=== PATIENT | male | born 1955 | race Caucasian/White ===

== ENCOUNTER 2018-01-07 16:00 | Emergency (ER) | payer OTHER | END 2018-01-07 19:06 | disposition home or self-care (01) | LOC: FTE 16:00 | DX: T25.221A Burn of second degree of right foot, initial encounter (principal); E11.621 Type 2 diabetes mellitus with foot ulcer; L97.519 Non-pressure chronic ulcer of other part of right foot with unspecified severity; X16.XXXA Contact with hot heating appliances, radiators and pipes, initial encounter; Y92.9 Unspecified place or not applicable | CPT/HCPCS: 99282 ==

== ENCOUNTER 2018-01-10 15:33 | Inpatient (IN) | payer OTHER ==
[2018-01-10 17:03] LABS: ADD MAN DIFF? NO
[2018-01-10 17:08] LABS: BASOPHILS % 0.4 % (0.0-2.0); EOSINOPHILS # 0.1 10^3/ul (0.0-0.5); EOSINOPHILS % 2.6 % (0.0-7.0); HEMATOCRIT 33.3 % (42.0-52.0); HEMOGLOBIN 11.3 g/dl (14.0-18.0); LYMPHOCYTES # 1.2 10^3/ul (0.8-2.9); MEAN CORPUSCULAR HEMOGLOBIN 27.7 pg (29.0-33.0); MEAN CORPUSCULAR HGB CONC 33.9 g/dl (32.0-37.0); MEAN CORPUSCULAR VOLUME 81.6 fl (82.0-101.0); MEAN PLATELET VOLUME 8.6 fl (7.4-10.4); MONOCYTE # 0.4 10^3/ul (0.3-0.9); MONOCYTES % 7.3 % (0.0-11.0); NEUTROPHIL # 3.3 10^3/ul (1.6-7.5); NEUTROPHILS % 66.1 % (39.0-77.0); PLATELET COUNT 252 10^3/UL (140-415); RED BLOOD COUNT 4.08 10^6/ul (4.70-6.10); RED CELL DISTRIBUTION WIDTH 14.4 % (11.5-14.5)
[2018-01-10] MEDS: SODIUM CHLORIDE 0.9% 1L BAG IV* (17:13)
[2018-01-10] MEDS: CEFEPIME 2GM/50 ML (PMX) 50 ML IVPB (17:13)
[2018-01-10 17:20] LABS: MODE ROOM AIR; MetHgb Venous 0.3 %; Sample Type Blood venous; Site VENOUS LINE; Venous COHb 0.4 %; Venous Fraction OxyHgb 54.4 %; Venous Oxygen Sat 54.8 mmHG (55.0-75.0); Venous Total Hemglobin 11.3 g/dl
[2018-01-10 17:31] LABS: ANION GAP 9 (5-13); BLOOD UREA NITROGEN 17 mg/dl (7-20); C-REACTIVE PROTEIN 0.7 mg/dl (0.0-0.9); CALCIUM 9.3 mg/dl (8.4-10.2); CARBON DIOXIDE 32 mmol/L (21-31); CHLORIDE 95 mmol/L (97-110); CREATININE 0.84 mg/dl (0.61-1.24); PARTIAL THROMBOPLASTIN TIME 31.2 Sec (23.0-35.0); POTASSIUM 4.1 mmol/L (3.5-5.1); SODIUM 136 mmol/L (135-144)
[2018-01-10 17:41] LABS: INR 0.93; PROTIME 12.5 Sec (11.9-14.9)
[2018-01-10 17:46] LABS: GLUCOSE 491 mg/dl (70-220)
[2018-01-10] MEDS: VANCOMYCIN 1 GM (PMX) 250 ML IVPB (17:48)
[2018-01-10] MEDS: INSULIN LISPRO 100 UNIT/ML VIAL SC (18:12)
[2018-01-10 18:25] LABS: ERYTHROCYTE SEDIMENTATION RATE 24 mm/Hr (0-20)
[2018-01-10] MEDS ORDERED: MAGNESIUM HYDROXIDE 30ML CUP PO (18:30)
[2018-01-10] MEDS ORDERED: ONDANSETRON 4 MG INJ IV ×2 (18:30)
[2018-01-10] MEDS ORDERED: GLUCOSE GEL 15 GRAM TUBE PO ×2 (18:30)
[2018-01-10] MEDS ORDERED: VANCOMYCIN IV PER PHARMACY XX (18:30)
[2018-01-10] MEDS ORDERED: NACL 0.9% 3 ML SYG IV (18:30)
[2018-01-10] MEDS ORDERED: GLUCOSE GEL 15 GRAM TUBE BUCCAL (18:30)
[2018-01-10] MEDS ORDERED: GLUCAGON 1 MG INJ IM (18:30)
[2018-01-10] MEDS ORDERED: DEXTROSE 50% 50 ML SYRINGE IV ×2 (18:30)
[2018-01-10] MEDS ORDERED: HYDROCODONE/APAP (5/325) TAB PO (18:30)
[2018-01-10] MEDS ORDERED: ACETAMINOPHEN 325 MG TAB PO (18:30)
[2018-01-10] MEDS ORDERED: DOCUSATE SODIUM 100 MG CAP PO (18:30)
[2018-01-10 19:04] LABS: ADD UMIC NO; UR ASCORBIC ACID NEGATIVE (NEGATIVE); UR BILIRUBIN (Dip) NEGATIVE (NEGATIVE); UR BLOOD (Dip) NEGATIVE (NEGATIVE); UR CLARITY CLEAR (CLEAR); UR COLOR STRAW (YELLOW); UR GLUCOSE (Dip) 3+ mg/dL (NEGATIVE); UR KETONES (Dip) NEGATIVE (NEGATIVE); UR LEUKOCYTE ESTERASE (Dip) NEGATIVE Leu/ul (NEGATIVE); UR NITRITE (Dip) NEGATIVE (NEGATIVE); UR SPECIFIC GRAVITY (Dip) 1.028 (1.003-1.030); UR TOTAL PROTEIN (Dip) NEGATIVE (NEGATIVE); UR UROBILINOGEN (Dip) NEGATIVE (NEGATIVE)
[2018-01-10 19:18] LABS: HEMOGLOBIN A1C 10.5 % (0-5.9)
[2018-01-10 19:32] LABS: TOTAL IRON BINDING CAPACITY 255 ug/dl (241-421)
[2018-01-10 19:54] LABS: % IRON SATURATION 18 % SAT (22-52); IRON 45 ug/dl (35-150)
[2018-01-10] MEDS: INSULIN ASPART [NOVOLOG] 3 ML PEN SC (20:46)
[2018-01-10] MEDS: INSULIN GLARGINE [LANTus] (100 UNITS/ML) SYG SC (20:47)
[2018-01-10] MEDS: VANCOMYCIN 1 GM 250 ML IVPB (20:48)
[2018-01-10] MEDS: MEROPENEM 1 GM/50ML(PMX) 50 ML IVPB (22:18)
[2018-01-10] MEDS ORDERED: PENDING SANTYL ORDER FOR WOUND CARE XX (22:30)
[2018-01-11] MEDS ORDERED: COLLAGENASE 5 GM (UD JAR) TOP
[2018-01-11] MEDS: MEROPENEM 1 GM/50ML(PMX) 50 ML IVPB ×2 (05:35→13:49)
[2018-01-11 06:47] LABS: ADD MAN DIFF? NO
[2018-01-11 06:56] LABS: WHITE BLOOD COUNT 5.5 10^3/ul (4.8-10.8)
[2018-01-11 06:56] LABS: BASOPHILS % 0.4 % (0.0-2.0); EOSINOPHILS # 0.2 10^3/ul (0.0-0.5); EOSINOPHILS % 4.4 % (0.0-7.0); HEMATOCRIT 29.5 % (42.0-52.0); LYMPHOCYTES # 1.2 10^3/ul (0.8-2.9); LYMPHOCYTES % 21.8 % (15.0-51.0); MEAN CORPUSCULAR HEMOGLOBIN 27.9 pg (29.0-33.0); MEAN CORPUSCULAR HGB CONC 33.9 g/dl (32.0-37.0); MEAN CORPUSCULAR VOLUME 82.4 fl (82.0-101.0); MEAN PLATELET VOLUME 9.2 fl (7.4-10.4); MONOCYTE # 0.4 10^3/ul (0.3-0.9); MONOCYTES % 7.5 % (0.0-11.0); NEUTROPHIL # 3.6 10^3/ul (1.6-7.5); NEUTROPHILS % 65.4 % (39.0-77.0); PLATELET COUNT 212 10^3/UL (140-415); RED BLOOD COUNT 3.58 10^6/ul (4.70-6.10); RED CELL DISTRIBUTION WIDTH 14.5 % (11.5-14.5)
[2018-01-11 07:32] LABS: ANION GAP 5 (5-13); BLOOD UREA NITROGEN 11 mg/dl (7-20); CALCIUM 8.8 mg/dl (8.4-10.2); CARBON DIOXIDE 29 mmol/L (21-31); CHLORIDE 105 mmol/L (97-110); CREATININE 0.58 mg/dl (0.61-1.24); GLUCOSE 186 mg/dl (70-220); MAGNESIUM 1.8 mg/dl (1.7-2.5); POTASSIUM 3.9 mmol/L (3.5-5.1); SODIUM 139 mmol/L (135-144)
[2018-01-11] MEDS ORDERED: INSULIN GLARGINE [LANTus] (100 UNITS/ML) SYG SC (08:00)
[2018-01-11] MEDS: INSULIN ASPART [NOVOLOG] 3 ML PEN SC ×7 (08:06→20:48)
[2018-01-11] MEDS: VANCOMYCIN 1 GM 250 ML IVPB (08:19)
[2018-01-11] MEDS: COLLAGENASE 5 GM (UD JAR) TOP (08:19)
[2018-01-11] MEDS: ZYVOX 600 MG TAB PO ×2 (14:24→22:29)
[2018-01-11] MEDS: LEVOFLOXACIN 750 MG TABLET PO (14:24)
[2018-01-11] MEDS: HYDROCODONE/APAP (5/325) TAB PO (20:43)
[2018-01-11] MEDS: L ACIDOPHIL/B LACTIS/B LONGUM CAPSULE PO (20:43)
[2018-01-11] MEDS: INSULIN GLARGINE [LANTus] (100 UNITS/ML) SYG SC (20:47)
[2018-01-12 05:30] LABS: ADD MAN DIFF? NO
[2018-01-12 05:31] LABS: BASOPHILS % 0.8 % (0.0-2.0); EOSINOPHILS # 0.2 10^3/ul (0.0-0.5); EOSINOPHILS % 4.1 % (0.0-7.0); HEMATOCRIT 29.2 % (42.0-52.0); LYMPHOCYTES # 1.2 10^3/ul (0.8-2.9); LYMPHOCYTES % 31.4 % (15.0-51.0); MEAN CORPUSCULAR HEMOGLOBIN 28.2 pg (29.0-33.0); MEAN CORPUSCULAR HGB CONC 34.2 g/dl (32.0-37.0); MEAN CORPUSCULAR VOLUME 82.3 fl (82.0-101.0); MEAN PLATELET VOLUME 9.2 fl (7.4-10.4); MONOCYTE # 0.3 10^3/ul (0.3-0.9); MONOCYTES % 8.1 % (0.0-11.0); NEUTROPHIL # 2.2 10^3/ul (1.6-7.5); NEUTROPHILS % 55.1 % (39.0-77.0); PLATELET COUNT 204 10^3/UL (140-415); RED BLOOD COUNT 3.55 10^6/ul (4.70-6.10); RED CELL DISTRIBUTION WIDTH 14.6 % (11.5-14.5)
[2018-01-12] MEDS: LEVOFLOXACIN 750 MG TABLET PO (05:45)
[2018-01-12 06:01] LABS: ANION GAP 4 (5-13); BLOOD UREA NITROGEN 13 mg/dl (7-20); CALCIUM 9.1 mg/dl (8.4-10.2); CARBON DIOXIDE 32 mmol/L (21-31); CHLORIDE 102 mmol/L (97-110); GLUCOSE 221 mg/dl (70-220); MAGNESIUM 1.9 mg/dl (1.7-2.5); PHOSPHORUS 3.3 mg/dl (2.5-4.9); POTASSIUM 5.1 mmol/L (3.5-5.1); SODIUM 138 mmol/L (135-144)
[2018-01-12] MEDS: INSULIN ASPART [NOVOLOG] 3 ML PEN SC ×7 (08:09→20:33)
[2018-01-12] MEDS: L ACIDOPHIL/B LACTIS/B LONGUM CAPSULE PO ×2 (08:14→20:33)
[2018-01-12] MEDS: ZYVOX 600 MG TAB PO (08:14)
[2018-01-12] MEDS: COLLAGENASE 5 GM (UD JAR) TOP (08:14)
[2018-01-12] MEDS: MULTIVITAMINS THERAPEUTIC TAB PO (12:23)
[2018-01-12] MEDS: ASCORBIC ACID 500 MG TAB PO (12:23)
[2018-01-12] MEDS: ZINC SULFATE 220 MG CAP PO (12:23)
[2018-01-12] MEDS: DAPTOMYCIN 460 MG in SOD CHLORIDE 0.9% 100 ML IVPB (15:28)
[2018-01-12] MEDS: INSULIN GLARGINE [LANTus] (100 UNITS/ML) SYG SC (20:32)
[2018-01-12] MEDS: HYDROCODONE/APAP (5/325) TAB PO (20:33)
[2018-01-13 05:14] LABS: ADD MAN DIFF? NO
[2018-01-13 05:22] LABS: BASOPHILS % 0.6 % (0.0-2.0); EOSINOPHILS # 0.2 10^3/ul (0.0-0.5); EOSINOPHILS % 4.4 % (0.0-7.0); HEMATOCRIT 31.6 % (42.0-52.0); HEMOGLOBIN 10.6 g/dl (14.0-18.0); LYMPHOCYTES # 1.7 10^3/ul (0.8-2.9); LYMPHOCYTES % 33.1 % (15.0-51.0); MEAN CORPUSCULAR HEMOGLOBIN 27.8 pg (29.0-33.0); MEAN CORPUSCULAR HGB CONC 33.5 g/dl (32.0-37.0); MEAN CORPUSCULAR VOLUME 82.9 fl (82.0-101.0); MEAN PLATELET VOLUME 8.9 fl (7.4-10.4); MONOCYTE # 0.4 10^3/ul (0.3-0.9); MONOCYTES % 8.8 % (0.0-11.0); NEUTROPHIL # 2.6 10^3/ul (1.6-7.5); NEUTROPHILS % 52.5 % (39.0-77.0); PLATELET COUNT 211 10^3/UL (140-415); RED BLOOD COUNT 3.81 10^6/ul (4.70-6.10); RED CELL DISTRIBUTION WIDTH 14.6 % (11.5-14.5)
[2018-01-13 05:45] LABS: ALBUMIN 2.5 g/dl (3.3-4.9); ANION GAP 5 (5-13); BLOOD UREA NITROGEN 15 mg/dl (7-20); CALCIUM 9.5 mg/dl (8.4-10.2); CARBON DIOXIDE 32 mmol/L (21-31); CHLORIDE 101 mmol/L (97-110); CREATININE 0.98 mg/dl (0.61-1.24); GLUCOSE 141 mg/dl (70-220); MAGNESIUM 1.9 mg/dl (1.7-2.5); PHOSPHORUS 4.1 mg/dl (2.5-4.9); POTASSIUM 4.3 mmol/L (3.5-5.1); SODIUM 138 mmol/L (135-144)
[2018-01-13] MEDS: LEVOFLOXACIN 750 MG TABLET PO (05:53)
[2018-01-13 06:02] LABS: CREATINE KINASE 61 IU/L (23-200)
[2018-01-13] MEDS: INSULIN ASPART [NOVOLOG] 3 ML PEN SC ×7 (08:01→20:20)
[2018-01-13] MEDS: COLLAGENASE 5 GM (UD JAR) TOP (08:02)
[2018-01-13] MEDS: ASCORBIC ACID 500 MG TAB PO (08:03)
[2018-01-13] MEDS: L ACIDOPHIL/B LACTIS/B LONGUM CAPSULE PO ×2 (08:03→20:26)
[2018-01-13] MEDS: MULTIVITAMINS THERAPEUTIC TAB PO (08:03)
[2018-01-13] MEDS: ZINC SULFATE 220 MG CAP PO (08:03)
[2018-01-13] MEDS: DAPTOMYCIN 460 MG in SOD CHLORIDE 0.9% 100 ML IVPB (15:33)
[2018-01-13] MEDS: HYDROCODONE/APAP (5/325) TAB PO (20:25)
[2018-01-13] MEDS: INSULIN GLARGINE [LANTus] (100 UNITS/ML) SYG SC (20:25)
[2018-01-14 04:58] LABS: ADD MAN DIFF? NO
[2018-01-14 05:04] LABS: WHITE BLOOD COUNT 3.8 10^3/ul (4.8-10.8)
[2018-01-14 05:04] LABS: BASOPHILS % 0.5 % (0.0-2.0); EOSINOPHILS # 0.2 10^3/ul (0.0-0.5); EOSINOPHILS % 4.3 % (0.0-7.0); HEMATOCRIT 31.8 % (42.0-52.0); HEMOGLOBIN 10.5 g/dl (14.0-18.0); LYMPHOCYTES # 1.4 10^3/ul (0.8-2.9); LYMPHOCYTES % 38.3 % (15.0-51.0); MEAN CORPUSCULAR HEMOGLOBIN 27.6 pg (29.0-33.0); MEAN CORPUSCULAR VOLUME 83.7 fl (82.0-101.0); MEAN PLATELET VOLUME 8.6 fl (7.4-10.4); MONOCYTE # 0.3 10^3/ul (0.3-0.9); MONOCYTES % 7.2 % (0.0-11.0); NEUTROPHIL # 1.9 10^3/ul (1.6-7.5); NEUTROPHILS % 49.4 % (39.0-77.0); PLATELET COUNT 202 10^3/UL (140-415); RED CELL DISTRIBUTION WIDTH 14.6 % (11.5-14.5)
[2018-01-14 05:48] LABS: ALBUMIN 2.6 g/dl (3.3-4.9); ANION GAP 6 (5-13); BLOOD UREA NITROGEN 18 mg/dl (7-20); CALCIUM 9.2 mg/dl (8.4-10.2); CARBON DIOXIDE 31 mmol/L (21-31); CHLORIDE 102 mmol/L (97-110); CREATININE 0.88 mg/dl (0.61-1.24); GLUCOSE 180 mg/dl (70-220); MAGNESIUM 1.8 mg/dl (1.7-2.5); PHOSPHORUS 4.2 mg/dl (2.5-4.9); POTASSIUM 4.9 mmol/L (3.5-5.1); SODIUM 139 mmol/L (135-144)
[2018-01-14] MEDS: LEVOFLOXACIN 750 MG TABLET PO (05:56)
[2018-01-14] MEDS: INSULIN ASPART [NOVOLOG] 3 ML PEN SC ×7 (08:35→20:25)
[2018-01-14] MEDS: MULTIVITAMINS THERAPEUTIC TAB PO (08:36)
[2018-01-14] MEDS: ZINC SULFATE 220 MG CAP PO (08:37)
[2018-01-14] MEDS: ASCORBIC ACID 500 MG TAB PO (08:37)
[2018-01-14] MEDS: L ACIDOPHIL/B LACTIS/B LONGUM CAPSULE PO ×2 (08:38→20:23)
[2018-01-14] MEDS: COLLAGENASE 5 GM (UD JAR) TOP (09:00)
[2018-01-14] MEDS: LIDOCAINE 1% (MPF) 5 ML VIAL SC (12:25)
[2018-01-14] MEDS: SOD CHLORIDE 0.9% 100 ML (12:40)
[2018-01-14] MEDS: ENOXAPARIN 40 MG/0.4 ML SYG SC (13:30)
[2018-01-14] MEDS: FLUCONAZOLE 100 MG TAB PO (15:34)
[2018-01-14] MEDS: DAPTOMYCIN 460 MG in SOD CHLORIDE 0.9% 100 ML IVPB (15:34)
[2018-01-14] MEDS: ACETAMINOPHEN 325 MG TAB PO (20:24)
[2018-01-14] MEDS: INSULIN GLARGINE [LANTus] (100 UNITS/ML) SYG SC (20:40)
[2018-01-15 05:36] LABS: ADD MAN DIFF? NO
[2018-01-15 05:50] LABS: BASOPHILS % 0.6 % (0.0-2.0); EOSINOPHILS # 0.1 10^3/ul (0.0-0.5); EOSINOPHILS % 4.5 % (0.0-7.0); HEMATOCRIT 30.2 % (42.0-52.0); HEMOGLOBIN 10.1 g/dl (14.0-18.0); LYMPHOCYTES % 33.8 % (15.0-51.0); MEAN CORPUSCULAR HEMOGLOBIN 27.6 pg (29.0-33.0); MEAN CORPUSCULAR HGB CONC 33.4 g/dl (32.0-37.0); MEAN CORPUSCULAR VOLUME 82.5 fl (82.0-101.0); MONOCYTE # 0.2 10^3/ul (0.3-0.9); MONOCYTES % 6.2 % (0.0-11.0); NEUTROPHIL # 1.7 10^3/ul (1.6-7.5); NEUTROPHILS % 54.6 % (39.0-77.0); PLATELET COUNT 212 10^3/UL (140-415); RED BLOOD COUNT 3.66 10^6/ul (4.70-6.10); RED CELL DISTRIBUTION WIDTH 14.6 % (11.5-14.5)
[2018-01-15 05:50] LABS: WHITE BLOOD COUNT 3.1 10^3/ul (4.8-10.8)
[2018-01-15] MEDS: LEVOFLOXACIN 750 MG TABLET PO (06:12)
[2018-01-15 06:18] LABS: ANION GAP 6 (5-13); BLOOD UREA NITROGEN 19 mg/dl (7-20); CALCIUM 9.2 mg/dl (8.4-10.2); CARBON DIOXIDE 29 mmol/L (21-31); CHLORIDE 105 mmol/L (97-110); CREATININE 0.74 mg/dl (0.61-1.24); GLUCOSE 157 mg/dl (70-220); MAGNESIUM 1.8 mg/dl (1.7-2.5); PHOSPHORUS 4.3 mg/dl (2.5-4.9); POTASSIUM 3.9 mmol/L (3.5-5.1); SODIUM 140 mmol/L (135-144)
[2018-01-15] MEDS: INSULIN ASPART [NOVOLOG] 3 ML PEN SC ×7 (09:01→21:00)
[2018-01-15] MEDS: ENOXAPARIN 40 MG/0.4 ML SYG SC (09:02)
[2018-01-15] MEDS: L ACIDOPHIL/B LACTIS/B LONGUM CAPSULE PO ×2 (09:03→21:12)
[2018-01-15] MEDS: COLLAGENASE 5 GM (UD JAR) TOP (09:03)
[2018-01-15] MEDS: MULTIVITAMINS THERAPEUTIC TAB PO (09:03)
[2018-01-15] MEDS: ASCORBIC ACID 500 MG TAB PO (09:03)
[2018-01-15] MEDS: ZINC SULFATE 220 MG CAP PO (09:03)
[2018-01-15] MEDS: FLUCONAZOLE 100 MG TAB PO (09:03)
[2018-01-15] MEDS: LINAGLIPTIN 5 MG TABLET PO (12:40)
[2018-01-15] MEDS: SODIUM HYPOCHLORITE (1/40) 1 APPLIC BTL IRR (16:46)
[2018-01-15] MEDS: DAPTOMYCIN 460 MG in SOD CHLORIDE 0.9% 100 ML IVPB (16:48)
[2018-01-15] MEDS: metFORMIN 500 MG TAB PO (17:38)
[2018-01-15] MEDS: INSULIN GLARGINE [LANTus] (100 UNITS/ML) SYG SC (21:15)
[2018-01-16] MEDS: LEVOFLOXACIN 750 MG TABLET PO (06:07)
[2018-01-16 06:33] LABS: ADD MAN DIFF? NO
[2018-01-16 06:43] LABS: WHITE BLOOD COUNT 2.8 10^3/ul (4.8-10.8)
[2018-01-16 06:43] LABS: BASOPHILS % 1.1 % (0.0-2.0); EOSINOPHILS # 0.1 10^3/ul (0.0-0.5); EOSINOPHILS % 4.6 % (0.0-7.0); HEMATOCRIT 30.7 % (42.0-52.0); HEMOGLOBIN 10.2 g/dl (14.0-18.0); LYMPHOCYTES # 1.2 10^3/ul (0.8-2.9); LYMPHOCYTES % 41.4 % (15.0-51.0); MEAN CORPUSCULAR HEMOGLOBIN 27.8 pg (29.0-33.0); MEAN CORPUSCULAR HGB CONC 33.2 g/dl (32.0-37.0); MEAN CORPUSCULAR VOLUME 83.7 fl (82.0-101.0); MEAN PLATELET VOLUME 9.1 fl (7.4-10.4); MONOCYTE # 0.2 10^3/ul (0.3-0.9); MONOCYTES % 6.1 % (0.0-11.0); NEUTROPHIL # 1.3 10^3/ul (1.6-7.5); NEUTROPHILS % 46.4 % (39.0-77.0); PLATELET COUNT 205 10^3/UL (140-415); RED BLOOD COUNT 3.67 10^6/ul (4.70-6.10); RED CELL DISTRIBUTION WIDTH 14.8 % (11.5-14.5)
[2018-01-16 07:04] LABS: ANION GAP 8 (5-13); BLOOD UREA NITROGEN 18 mg/dl (7-20); CALCIUM 8.7 mg/dl (8.4-10.2); CARBON DIOXIDE 27 mmol/L (21-31); CHLORIDE 106 mmol/L (97-110); CREATININE 0.86 mg/dl (0.61-1.24); Estimated GFR > 60 mL/min (>60); GLUCOSE 143 mg/dl (70-220); MAGNESIUM 1.8 mg/dl (1.7-2.5); PHOSPHORUS 4.1 mg/dl (2.5-4.9); POTASSIUM 3.7 mmol/L (3.5-5.1); SODIUM 141 mmol/L (135-144)
[2018-01-16] MEDS: INSULIN ASPART [NOVOLOG] 3 ML PEN SC ×7 (08:05→21:00)
[2018-01-16] MEDS: ENOXAPARIN 40 MG/0.4 ML SYG SC (08:06)
[2018-01-16] MEDS: MULTIVITAMINS THERAPEUTIC TAB PO (08:07)
[2018-01-16] MEDS: metFORMIN 500 MG TAB PO ×2 (08:07→17:20)
[2018-01-16] MEDS: LINAGLIPTIN 5 MG TABLET PO (08:07)
[2018-01-16] MEDS: FLUCONAZOLE 100 MG TAB PO (08:07)
[2018-01-16] MEDS: ASCORBIC ACID 500 MG TAB PO (08:07)
[2018-01-16] MEDS: COLLAGENASE 5 GM (UD JAR) TOP (08:08)
[2018-01-16] MEDS: ZINC SULFATE 220 MG CAP PO (08:08)
[2018-01-16] MEDS: L ACIDOPHIL/B LACTIS/B LONGUM CAPSULE PO ×2 (08:08→21:03)
[2018-01-16] MEDS: SODIUM HYPOCHLORITE (1/40) 1 APPLIC BTL IRR (08:08)
[2018-01-16] MEDS: DAPTOMYCIN 460 MG in SOD CHLORIDE 0.9% 100 ML IVPB (15:29)
[2018-01-16] MEDS: INSULIN GLARGINE [LANTus] (100 UNITS/ML) SYG SC (21:01)
[2018-01-17] MEDS: LEVOFLOXACIN 750 MG TABLET PO (05:03)
[2018-01-17 05:34] LABS: ADD MAN DIFF? NO
[2018-01-17 05:38] LABS: BASOPHILS % 0.7 % (0.0-2.0); EOSINOPHILS # 0.2 10^3/ul (0.0-0.5); EOSINOPHILS % 6.3 % (0.0-7.0); HEMATOCRIT 31.4 % (42.0-52.0); HEMOGLOBIN 10.4 g/dl (14.0-18.0); LYMPHOCYTES # 1.3 10^3/ul (0.8-2.9); LYMPHOCYTES % 41.9 % (15.0-51.0); MEAN CORPUSCULAR HEMOGLOBIN 27.7 pg (29.0-33.0); MEAN CORPUSCULAR HGB CONC 33.1 g/dl (32.0-37.0); MEAN CORPUSCULAR VOLUME 83.7 fl (82.0-101.0); MEAN PLATELET VOLUME 8.9 fl (7.4-10.4); MONOCYTE # 0.2 10^3/ul (0.3-0.9); MONOCYTES % 7.6 % (0.0-11.0); NEUTROPHIL # 1.3 10^3/ul (1.6-7.5); NEUTROPHILS % 43.2 % (39.0-77.0); PLATELET COUNT 200 10^3/UL (140-415); RED BLOOD COUNT 3.75 10^6/ul (4.70-6.10); RED CELL DISTRIBUTION WIDTH 14.7 % (11.5-14.5)
[2018-01-17 05:58] LABS: ANION GAP 8 (5-13); BLOOD UREA NITROGEN 18 mg/dl (7-20); CALCIUM 8.8 mg/dl (8.4-10.2); CARBON DIOXIDE 27 mmol/L (21-31); CHLORIDE 107 mmol/L (97-110); CREATININE 0.82 mg/dl (0.61-1.24); Estimated GFR > 60 mL/min (>60); GLUCOSE 132 mg/dl (70-220); MAGNESIUM 1.7 mg/dl (1.7-2.5); POTASSIUM 3.9 mmol/L (3.5-5.1); SODIUM 142 mmol/L (135-144)
[2018-01-17] MEDS: LINAGLIPTIN 5 MG TABLET PO (08:18)
[2018-01-17] MEDS: metFORMIN 500 MG TAB PO ×2 (08:19→17:31)
[2018-01-17] MEDS: INSULIN ASPART [NOVOLOG] 3 ML PEN SC ×7 (08:20→21:00)
[2018-01-17] MEDS: COLLAGENASE 5 GM (UD JAR) TOP (10:13)
[2018-01-17] MEDS: SODIUM HYPOCHLORITE (1/40) 1 APPLIC BTL IRR (10:13)
[2018-01-17] MEDS: ZINC SULFATE 220 MG CAP PO (10:14)
[2018-01-17] MEDS: MULTIVITAMINS THERAPEUTIC TAB PO (10:14)
[2018-01-17] MEDS: FLUCONAZOLE 100 MG TAB PO (10:14)
[2018-01-17] MEDS: L ACIDOPHIL/B LACTIS/B LONGUM CAPSULE PO ×2 (10:14→21:29)
[2018-01-17] MEDS: ASCORBIC ACID 500 MG TAB PO (10:15)
[2018-01-17] MEDS: ENOXAPARIN 40 MG/0.4 ML SYG SC (10:15)
[2018-01-17 11:02] LABS: CHOL/HDL RATIO 2.6 RATIO; HDL CHOLESTEROL 39 mg/dl (30-78); LDL CHOLESTEROL,CALCULATED 49 mg/dl; TRIGLYCERIDES 74 mg/dl (0-149)
[2018-01-17 11:02] LABS: CHOLESTEROL 103 mg/dl (100-200)
[2018-01-17] MEDS ORDERED: IBUPROFEN 800 MG TAB PO (15:30)
[2018-01-17] MEDS: DAPTOMYCIN 460 MG in SOD CHLORIDE 0.9% 100 ML IVPB (16:25)
[2018-01-17] MEDS: INSULIN GLARGINE [LANTus] (100 UNITS/ML) SYG SC (21:30)
[2018-01-18] MEDS: LEVOFLOXACIN 750 MG TABLET PO (05:35)
[2018-01-18] MEDS: INSULIN ASPART [NOVOLOG] 3 ML PEN SC ×6 (07:30→18:13)
[2018-01-18] MEDS: metFORMIN 500 MG TAB PO ×2 (07:47→18:14)
[2018-01-18] MEDS: MULTIVITAMINS THERAPEUTIC TAB PO (08:48)
[2018-01-18] MEDS: LINAGLIPTIN 5 MG TABLET PO (08:48)
[2018-01-18] MEDS: ASCORBIC ACID 500 MG TAB PO (08:49)
[2018-01-18] MEDS: L ACIDOPHIL/B LACTIS/B LONGUM CAPSULE PO (08:49)
[2018-01-18] MEDS: FLUCONAZOLE 100 MG TAB PO (08:50)
[2018-01-18] MEDS: ZINC SULFATE 220 MG CAP PO (08:50)
[2018-01-18] MEDS: ENOXAPARIN 40 MG/0.4 ML SYG SC (08:51)
[2018-01-18] MEDS: COLLAGENASE 5 GM (UD JAR) TOP (09:00)
[2018-01-18] MEDS: SODIUM HYPOCHLORITE (1/40) 1 APPLIC BTL IRR (09:00)
[2018-01-18] MEDS: DAPTOMYCIN 460 MG in SOD CHLORIDE 0.9% 100 ML IVPB (16:08)
== END 2018-01-18 20:25 | disposition home health service (06) | DRG 623 ==
LOC: E/R 15:33 → PP2 18:48
PROVIDERS: Internal Medicine
PROC: 0JBQ0ZZ Excision of Right Foot Subcutaneous Tissue and Fascia, Open Approach (ICD-10-PCS; principal; 2018-01-12)
PROC: 02HV33Z Insertion of Infusion Device into Superior Vena Cava, Percutaneous Approach (ICD-10-PCS; 2018-01-14)
DX: E11.69 Type 2 diabetes mellitus with other specified complication (principal); M86.8X7 Other osteomyelitis, ankle and foot; L03.115 Cellulitis of right lower limb; L02.611 Cutaneous abscess of right foot; E11.621 Type 2 diabetes mellitus with foot ulcer; E11.628 Type 2 diabetes mellitus with other skin complications; E11.40 Type 2 diabetes mellitus with diabetic neuropathy, unspecified; E11.65 Type 2 diabetes mellitus with hyperglycemia; L97.519 Non-pressure chronic ulcer of other part of right foot with unspecified severity; B96.89 Other specified bacterial agents as the cause of diseases classified elsewhere; D64.9 Anemia, unspecified; S92.511A Displaced fracture of proximal phalanx of right lesser toe(s), initial encounter for closed fracture; X58.XXXA Exposure to other specified factors, initial encounter; Z87.891 Personal history of nicotine dependence; Z79.84 Long term (current) use of oral hypoglycemic drugs
CPT/HCPCS: 36415; 36569; 71045; 73630; 73718; 76937; 80048; 80061; 80069; 81003; 82550; 82803; 82962; 83036; 83540; 83605; 83735; 84100; 85025; 85610; 85651; 85730; 86140; 87040; 87070; 87086; 93005; 93922; 96372; 96374; 96375; 97116; 97161; 99285-25